=== PATIENT | female | born 1970 | race Caucasian/White ===

== ENCOUNTER 2017-05-19 18:48 | Emergency (ER) | payer BC ==
[~2017-05-19] VITALS: Ht 170.2 cm; Wt 73.8 kg
[2017-05-19] MEDS ORDERED: FLEXERIL10 MG PO (21:24)
[2017-05-19] MEDS ORDERED: MEDROL DOSEPAK4 MG PO (21:24)
[2017-05-19] MEDS ORDERED: PERCOCET 5/31 TABLET PO (21:24)
[2017-05-19 21:52] VITALS: BP 131/104
== END 2017-05-19 22:02 | disposition home or self-care (01) ==
LOC: EME 18:48
DX: M54.5 Low back pain (principal); M62.830 Muscle spasm of back
CPT/HCPCS: 99281; 99284; J7512